=== PATIENT | male | born 1990 | race Two or more races ===

== ENCOUNTER 2021-01-29 22:19 | Emergency (ER) | payer MEDICAID ==
[~2021-01-29] VITALS: Ht 180.3 cm; Wt 81.6 kg
[2021-01-29 22:24] VITALS: BP 138/95
== END 2021-01-30 02:55 | disposition left against medical advice (07) ==
LOC: ER 22:25
DX: M79.642 Pain in left hand (principal); R22.32 Localized swelling, mass and lump, left upper limb; Z53.21 Procedure and treatment not carried out due to patient leaving prior to being seen by health care provider
CPT/HCPCS: 73130